=== PATIENT | female | born 1995 | race Caucasian/White ===

== ENCOUNTER 2018-03-30 19:16 | Emergency (ER) | payer SELFPAY ==
[2018-03-31] MEDS ORDERED: PROCHLORPERAZINE MALEATE 10 MG TABLET PO ONE (00:06)
[2018-03-31] MEDS ORDERED: IBUPROFEN 800 MG TABLET PO ONE (00:06)
[2018-03-31] MEDS ORDERED: DIPHENHYDRAMINE HCL 25 MG CAPSULE PO ONE (00:06)
--- NOTE | 2018-03-31 00:09 | ER Document Report ---
ED Medical Screen (RME) - General Chief Complaint: Headache Stated Complaint: WEAKNESS,NAUSEA Time Seen by Provider: 03/31/18 00:06 Mode of Arrival: Ambulatory Information source: Patient Notes: 23-year-old female presented to ED for complaint of migraine for 3-4 days with nausea no vomiting dizziness and intermittent chest pain. She states she has a history of migraines but this will not get relief. She states she is taken ibuprofen, Advil, naproxen, and Motrin as well as Tylenol with no relief. I have explained to her that ibuprofen Advil and Motrin are the same medication and naproxen is pretty similar do not take them within 8 hours of each other. Patient was able to verbalize understanding of this. She has been treated with Compazine and ibuprofen in the pit area. Patient is alert oriented respirations regular and unlabored speaking in full sentences walks with a even steady gait pupils equal and react to light. I have greeted and performed a rapid initial assessment of this patient. A comprehensive ED assessment and evaluation of the patient, analysis of test results and completion of medical decision making process will be conducted by an additional ED providers. TRAVEL OUTSIDE OF THE [place] IN LAST 30 DAYS: No - Related Data Allergies/Adverse Reactions: No Known Allergies Allergy (Verified 01/02/17 18:09) Past Medical History Pulmonary Medical History: Reports: Hx Asthma Renal/ Medical History: Denies: Hx Peritoneal Dialysis Past Surgical History: Reports: Hx Adenoidectomy, Hx Tonsillectomy - Immunizations Immunizations up to date: Yes History of Influenza Vaccine for 12/2016 - 05/2017 Season: Unknown Physical Exam - Vital signs Vitals: Temp Pulse Resp BP Pulse Ox 98.1 F 74 18 132/90 H 100 03/30/18 19:16 03/30/18 19:16 03/30/18 19:16 03/30/18 19:16 03/30/18 19:16 Course - Vital Signs Vital signs: Temp Pulse Resp BP Pulse Ox 98.1 F 74 18 132/90 H 100 03/30/18 19:16 03/30/18 19:27 03/30/18 19:27 03/30/18 19:27 03/30/18 19:27
--- NOTE | 2018-03-31 03:32 | ER Document Report ---
ED Headache - General Chief Complaint: Headache Stated Complaint: WEAKNESS,NAUSEA Time Seen by Provider: 03/31/18 03:32 Mode of Arrival: Ambulatory Information source: Patient Notes: HISTORY OF PRESENT ILLNESS: Patient is a 23-year-old female with a past medical history of chronic headaches/migraines who presents with recurrent worsening acute on chronic headache. Patient reports similar symptoms in the past, home treatments including oral ibuprofen did not improve the headache, she denies head injuries or confusion, no disorientation or ataxia, no fevers or chills. Onset: Gradual Provocation: Unknown Quality: Throbbing, global Radiation: None Severity: Moderate to severe Timing: Constant REVIEW OF SYSTEMS: CONSTITUTIONAL : Denies fever or chills, no sweats. Denies recent illness. EENT: Denies eye, ear, throat, or mouth pain or symptoms. Denies nasal or sinus congestion. CARDIOVASCULAR: Denies chest pain. RESPIRATORY: Denies cough, cold, or chest congestion. Denies shortness of breath, difficulty breathing, or wheezing. GASTROINTESTINAL: Denies abdominal pain. Denies nausea, vomiting, or diarrhea. Denies constipation. GENITOURINARY: Denies difficulty urinating, painful urination, burning, frequency, or blood in urine. FEMALE GENITOURINARY: Denies vaginal bleeding, abnormal or irregular periods. MUSCULOSKELETAL: Denies neck or back pain or joint pain or swelling. SKIN: Denies rash or skin lesions. HEMATOLOGIC : Denies easy bruising or bleeding. LYMPHATIC: Denies swollen, enlarged glands. NEUROLOGICAL: Denies altered mental status or loss of consciousness. Positive headache. Denies weakness or paralysis or loss of use of either side. Denies problems with gait or speech. Denies sensory or motor loss. PSYCHIATRIC: Denies anxiety or stress or depression. All other systems reviewed and negative. PHYSICAL EXAMINATION: GENERAL: Well-appearing, well-nourished and in no acute distress. HEAD: Atraumatic, normocephalic. No scalp deformity, depression, or crepitance. EYES: Pupils are 3 mm and equal/round/reactive to light, extraocular movements intact, sclera anicteric, conjunctiva are normal. ENT: Nares patent bilaterally, oropharynx clear without exudates or palatal petechia. Moist mucous membranes. No tonsil hypertrophy. NECK: Normal range of motion, supple without lymphadenopathy. LUNGS: Breath sounds present, equal, and clear to auscultation bilaterally. No wheezes, rales, or rhonchi. HEART: Regular rate and rhythm without murmurs, rubs, or gallops. 2+ peripheral pulses. Normal capillary refill. ABDOMEN: Soft, nontender, nondistended. Normoactive bowel sounds. No guarding, no rebound. No masses appreciated. BACK: Normal contour, no midline tenderness. Rectal exam deferred. PELVC: Deferred. EXTREMITIES: Normal range of motion, no pitting or edema. No cyanosis. NEUROLOGICAL: No focal neurological deficits. Moves all extremities spontaneously and on command. PSYCH: Normal mood, normal affect. No suicidal thoughts/ideations. No homocidal thoughts/ideations. No hallucinations. SKIN: Warm, dry, normal turgor, no rashes or lesions noted. ASSESSMENT AND PLAN: This patient is a 23-year-old female who presents with worsening acute on chronic headache. Most likely cluster headaches versus tension headache versus chronic migraine. 1. Will give oral Fioricet along with Imitrex and reassess. 2. Will plan for discharge if symptoms improve with treatment. TRAVEL OUTSIDE OF THE [place] IN LAST 30 DAYS: No - Related Data Allergies/Adverse Reactions: No Known Allergies Allergy (Verified 01/02/17 18:09) Past Medical History - General Information source: Patient - Social History Smoking Status: Unknown if Ever Smoked Chew tobacco use (# tins/day): No Frequency of alcohol use: None Drug Abuse: None Lives with: Family Family History: Reviewed & Not Pertinent Patient has suicidal ideation: No Patient has homicidal ideation: No - Past Medical History Cardiac Medical History: Reports: None Pulmonary Medical History: Reports: Hx Asthma EENT Medical History: Reports: None Neurological Medical History: Reports: None Endocrine Medical History: Reports: None Renal/ Medical History: Reports: None. Denies: Hx Peritoneal Dialysis Malignancy Medical History: Reports: None GI Medical History: Reports: None Musculoskeletal Medical History: Reports None Skin Medical History: Reports None Psychiatric Medical History: Reports: None Traumatic Medical History: Reports: None Infectious Medical History: Reports: None Past Surgical History: Reports: Hx Adenoidectomy, Hx Tonsillectomy - Immunizations Immunizations up to date: Yes Physical Exam - Vital signs Vitals: Temp Pulse Resp BP Pulse Ox 98.1 F 74 18 132/90 H 100 03/30/18 19:16 01/28/19 19:16 03/30/18 19:16 03/30/18 19:16 03/30/18 19:16 Course - Re-evaluation Re-evalutation: 03/31/18 06:09 Headache has resolved. Patient will be discharged home with return precautions and follow-up as needed. Patient voices both understanding and agreeing with the plan. - Vital Signs Vital signs: Temp Pulse Resp BP Pulse Ox 98.1 F 74 18 132/90 H 100 03/30/18 19:16 03/30/18 19:27 03/30/18 19:27 03/30/18 19:27 03/30/18 19:27 Discharge - Discharge Clinical Impression: Migraine headache Qualifiers: Migraine type: chronic without aura Status migrainosus presence: without status migrainosus Intractability: not intractable Qualified Code(s): G43.709 - Chronic migraine without aura, not intractable, without status migrainosus Condition: Good Disposition: HOME, SELF-CARE Instructions: Headache ([facility]) Additional Instructions: You have been evaluated in the Emergency Department for migraine headache. Please follow-up with your [primary physician] as instructed in 1-2 weeks. Return to the Emergency Department if you experience worsening headache that does not improve with medications, vision changes, confusion, difficulty walking, or any other concerning symptoms. Prescriptions: Butalb/Acetaminophen/Caffeine [Fioricet (50-325-40 mg) Tablet] 1 tab PO Q6H PRN #30 tab PRN Reason: For Headache Sumatriptan Succinate [Imitrex 25 mg Tablet] 25 mg PO ASDIR PRN #30 tablet PRN Reason: Print Language: Greenlandic
[2018-03-31] MEDS ORDERED: BUTALB/ACETAMINOPHEN/CAFFEINE 1 TAB EACH PO ONE (04:36)
[2018-03-31] MEDS ORDERED: SUMATRIPTAN SUCCINATE 25 MG TABLET PO ONE (04:37)
[2018-03-31] MEDS ORDERED: SUMATRIPTAN SUCCINATE 25 MG TABLET ONE (04:52)
[2018-03-31 06:20] VITALS: BP 115/70
== END 2018-03-31 06:20 | disposition home or self-care (01) ==
LOC: ER 19:16
DX: G43.709 Chronic migraine without aura, not intractable, without status migrainosus (principal); R53.1 Weakness; R11.0 Nausea
CPT/HCPCS: 99283; J3490 ×2; S0183

== ENCOUNTER 2019-01-27 14:00 | Emergency (ER) | payer SELFPAY ==
[2019-01-27] MEDS ORDERED: NORMAL SALINE 1000 ML 1,000 ML IV ONE (14:13)
[2019-01-27] MEDS ORDERED: BUTALB/ACETAMINOPHEN/CAFFEINE 1 TAB EACH PO ONE (14:14)
--- NOTE | 2019-01-27 14:16 | ER Document Report ---
ED Medical Screen (RME) - General Chief Complaint: Headache Stated Complaint: DIZZINESS Time Seen by Provider: 01/27/19 14:07 Primary Care Provider: SHANNON PITTMAN NP [Primary Care Provider] - Follow up as needed Mode of Arrival: Ambulatory Information source: Patient Notes: Patient presents complaining of daily headaches for the past 9 months. Patient reports headache pain is into the frontal area in the left side of her face. Patient states that she is also had a spinning sensation periodically for the past month. Patient states that she has had spots in her vision and ringing in her ears that has been going on for the past week that has brought her in today. Patient does have a history of headaches and is currently seeing a neurologist and is placed on amitriptyline. Patient denies any head injury fever nausea or vomiting. I have greeted and performed a rapid initial assessment of this patient. A comprehensive ED assessment and evaluation of the patient, analysis of test results and completion of the medical decision making process will be conducted by additional ED providers. TRAVEL OUTSIDE OF THE [place] IN LAST 30 DAYS: No - Related Data Allergies/Adverse Reactions: No Known Allergies Allergy (Verified 01/02/17 18:09) Past Medical History Pulmonary Medical History: Reports: Hx Asthma Renal/ Medical History: Denies: Hx Peritoneal Dialysis Past Surgical History: Reports: Hx Adenoidectomy, Hx Tonsillectomy - Immunizations Immunizations up to date: Yes Physical Exam - Vital signs Vitals: Temp Pulse Resp BP Pulse Ox 97.6 F 104 H 18 148/96 H 98 01/27/19 14:04 01/27/19 14:04 01/27/19 14:04 01/27/19 14:04 01/27/19 14:04 - Neurological Neuro grossly intact: Yes Cognition: Normal [place] Coma Scale Eye Opening: Spontaneous [place] Coma Scale Verbal: Oriented Patrice Coma Scale Motor: Obeys Commands [place] Coma Scale Total: 15 Speech: Normal. No: Dysarthria Course - Vital Signs Vital signs: Temp Pulse Resp BP Pulse Ox 97.6 F 104 H 18 148/96 H 98 01/27/19 14:04 01/27/19 14:04 01/27/19 14:04 01/27/19 14:04 01/27/19 14:04 Doctor's Discharge - Discharge Referrals: WITTLER,SHANNON, CHEMICAL RESEARCH TECHNICIAN [Primary Care Provider] - Follow up as needed
--- NOTE | 2019-01-27 14:58 | ER Document Report ---
ED General - General Chief Complaint: Headache Stated Complaint: DIZZINESS Time Seen by Provider: 01/27/19 14:07 Primary Care Provider: SHANNON PITTMAN NP [NO LOCAL MD] - Follow up as needed Mode of Arrival: Ambulatory TRAVEL OUTSIDE OF THE [place] IN LAST 30 DAYS: No - HPI Notes: Patient is a 23-year-old female with a history of chronic recurrent headaches, dizziness, and tinnitus who presents complaining of continued symptoms almost daily for the past 9 months. Patient has not had major changes in symptoms otherwise. She is able to eat and drink without difficulty. She is urinating normally and having normal bowel movements. Patient states that she normally does not take medicine for this issue, but will on occasion take Tylenol if it gets worse enough. Patient is otherwise somewhat vague with why she is here and with answering questions. She has a neurologist that she sees and has seen ophthalmology and ENT in the past as well. Patient states that her last imaging was a CT and MRI performed about 13 months ago. Patient states that she is also had a spinal tap done in the past, but no formal diagnosis of anything. This is not the worst headache of her life and did not start as a thunderclap. Denies drug allergies. No recent illness. Denies any fever, head injury, neck pain, changes in vision/speech/mentation/hearing, URI, sore throat, chest pain, palpitations, syncope, cough, shortness of breath, wheeze, dyspnea, abdominal pain, nausea/vomiting/diarrhea, urinary retention, dysuria, hematuria, loss of control of bowel or bladder, numbness/tingling, saddle anesthesia, muscle paralysis/weakness, or rash. - Related Data Allergies/Adverse Reactions: No Known Allergies Allergy (Verified 01/02/17 18:09) Past Medical History - General Information source: Patient - Social History Smoking Status: Never Smoker Chew tobacco use (# tins/day): No Frequency of alcohol use: None Drug Abuse: None Family History: Reviewed & Not Pertinent Patient has suicidal ideation: No Patient has homicidal ideation: No Pulmonary Medical History: Reports: Hx Asthma Renal/ Medical History: Denies: Hx Peritoneal Dialysis Past Surgical History: Reports: Hx Adenoidectomy, Hx Tonsillectomy - Immunizations Immunizations up to date: Yes Review of Systems - Review of Systems -: Yes All other systems reviewed and negative Physical Exam - Vital signs Vitals: Temp Pulse Resp BP Pulse Ox 97.6 F 104 H 18 148/96 H 98 01/27/19 14:04 01/27/19 14:04 01/27/19 14:04 01/27/19 14:04 01/27/19 14:04 - Notes Notes: PHYSICAL EXAMINATION: GENERAL: Well-appearing, well-nourished and in no acute distress. A&Ox4. Answers questions appropriately. HEAD: Atraumatic, normocephalic. Non-tender. EYES: Pupils equal round and reactive to light, extraocular movements intact, sclera anicteric, conjunctiva are normal. No nystagmus. ENT: EAC clear b/l. TM's intact b/l without erythema, fluid, or perforation. Nares patent and without discharge. oropharynx clear without exudates. No tonsilar hypertrophy or erythema. Moist mucous membranes. No sinus tenderness. NECK: Normal range of motion, supple without lymphadenopathy. No rigidity/meningismus. No midline tenderness. LUNGS: Breath sounds clear to auscultation bilaterally and equal. No wheezes rales or rhonchi. HEART: Regular rate and rhythm without murmurs, rubs, gallops. ABDOMEN: Soft, nontender, nondistended abdomen. No guarding, no rebound. Normal bowel sounds present. No CVA tenderness bilaterally. Musculoskeletal: Ext b/l: FROM to passive/active. Strength 5+/5. No deficits noted. No bony tenderness of extremities. Extremities: No cyanosis, clubbing, or edema b/l. Peripheral pulses 2+. Capillary refill less than 2 seconds. NEUROLOGICAL: NIH 0. GCS 15. Cranial nerves grossly intact. Normal speech, normal gait. Normal sensory, motor exams. Reflexes 2+ b/l. ASH's negative. Pronator drift negative. Heel/franklin, finger/nose wnl. Romberg neg. PSYCH: Normal mood, normal affect. SKIN: Warm, Dry, normal turgor, no rashes or lesions noted. Course - Re-evaluation Re-evalutation: 01/27/19 14:53 I have reviewed with case with Dr. Momin who would like to obtain a CT head to further evaluate and if unremarkable may discharge. Reviewed risk/benefit of CT imaging with patient who agrees to CT scan. 01/27/19 15:50 Patient is an afebrile, well-hydrated, 23-year-old female who presents to the ED with KING, unspecified, suspect benign. Vitals are acceptable without any significant tachycardia, tachypnea, or hypoxia. PE is otherwise unremarkable for any focal neurological deficits. NIH 0, GCS 15, cranial nerves grossly intact. Patient has had headaches like this in the past recently. CT head unremarkable aside from left sinus disease. No fever or URI symptoms otherwise. We will hold on any antibiotics per Dr. Momin. No further labs or imaging warranted at this time based on H&P. Pt declined any medications today. She is nontoxic-appearing and is tolerating p.o. without any difficulties. Low suspicion for any acute glaucoma, temporal arteritis, meningitis, intracranial hemorrhage, ischemic stroke, or fracture at this time. Patient is aware that this condition can change from initial presentation and that she needs to monitor symptoms closely for any acute changes. Recheck with your PCM/neurologist in 3-5 days. F/u with ENT/Neuro. Return to the ED with any worsening/concerning symptoms otherwise as reviewed in discharge. Patient is in agreement. - Vital Signs Vital signs: Temp Pulse Resp BP Pulse Ox 97.6 F 104 H 18 148/96 H 98 01/27/19 14:04 01/27/19 14:04 01/27/19 14:04 01/27/19 14:04 01/27/19 14:04 Discharge - Discharge Clinical Impression: Headache Qualifiers: Headache type: unspecified Headache chronicity pattern: acute headache Intractability: not intractable Qualified Code(s): R51 - Headache Condition: Stable Disposition: HOME, SELF-CARE Instructions: Headache ([facility]) Additional Instructions: Rest, Ice/cool compress Tylenol/ibuprofen as needed Light stretches daily over the counter medicines as needed Strength exercises as able Moist heat and massage may help F/u with your PCP in 3-5 days for a recheck Schedule consult with neurology and ENT Return to the ED with any worsening symptoms and/or development of fever, headache, changes in behavior/mentation/vision/speech, chest pain, palpitations, syncope, shortness of breath, trouble breathing, abdominal pain, n/v/d, blood in stool/urine, loss of control of bowel/bladder, urinary retention, muscle weakness/paralysis, saddle anesthesia, numbness/tingling, or other worsening symptoms that are concerning to you. Forms: Elevated Blood Pressure Referrals: SHANNON PITTMAN NP [NO LOCAL MD] - Follow up as needed DOMINGO CERRATO DO [ASSOCIATE] - Follow up as needed
--- NOTE | 2019-01-27 15:28 | RADIOLOGY REPORT (SQ) ---
EXAM DESCRIPTION: CT HEAD WITHOUT COMPLETED DATE/TIME: 01/27/2019 3:18 pm REASON FOR STUDY: headache, dizziness COMPARISON: None. TECHNIQUE: Axial images acquired through the brain without intravenous contrast. Images reviewed wi th bone, brain and subdural windows. Additional sagittal and coronal reconstructions were generated. Images stored on PACS. All CT scanners at this facility use dose modulation, iterative reconstruction, and/or weight based d osing when appropriate to reduce radiation dose to as low as reasonably achievable (ALARA). [facility]: Dose Right [facility]: CareDose [facility]: Dose Right [facility]: Teradose 4D [facility]: Smart [employer] RADIATION DOSE: CT Rad equipment meets quality standard of care and radiation dose reduction techniq ues were employed. CTDIvol: 53.2 mGy. DLP: 1150 mGy-cm. mGy. LIMITATIONS: None. FINDINGS: VENTRICLES: Normal size and contour. CEREBRUM: No masses. No hemorrhage. No midline shift. No evidence for acute infarction. Normal gra y/white matter differentiation. No areas of low density in the white matter. CEREBELLUM: No masses. No hemorrhage. No alteration of density. No evidence for acute infarction. EXTRAAXIAL SPACES: No fluid collections. No masses. ORBITS AND GLOBE: No intra- or extraconal masses. Normal contour of globe without masses. CALVARIUM: No fracture. PARANASAL SINUSES: Large mucous retention cyst in the left maxillary sinus. SOFT TISSUES: No mass or hematoma. OTHER: No other significant finding. IMPRESSION: Left maxillary sinus disease with no acute intracranial imaging finding. EVIDENCE OF ACUTE STROKE: NO. COMMENT: Quality ID # [id number]: Final reports with documentation of one or more dose reduction techniques (e.g., Automated exposure control, adjustment of the mA and/or kV according to patient size, use of iterative reconstruction technique) TECHNICAL DOCUMENTATION: JOB ID: [id number] [employer] All Rights Reserved Reading location - IP/workstation name: [email or web address]
[2019-01-27 16:34] VITALS: BP 114/79
== END 2019-01-27 16:34 | disposition home or self-care (01) ==
LOC: ER 14:00
DX: R51 Headache (principal); J32.0 Chronic maxillary sinusitis; R42 Dizziness and giddiness; J45.909 Unspecified asthma, uncomplicated
CPT/HCPCS: 70450; 99284

== ENCOUNTER 2019-03-04 16:51 | Emergency (ER) | payer OTHER ==
--- NOTE | 2019-03-04 17:25 | ER Document Report ---
ED Medical Screen (RME) - General Chief Complaint: Cough Stated Complaint: COUGH,CONGESTION Time Seen by Provider: 03/04/19 17:20 Primary Care Provider: INDERJIT FLYNN FNP [Primary Care Provider] - Follow up as needed TRAVEL OUTSIDE OF THE [place] IN LAST 30 DAYS: No - HPI Notes: 03/04/19 17:23 Patient is a 23-year-old female with a history of chronic recurrent headaches, dizziness, and tinnitus who presents complaining of having nasal congestion and discharge as well as a semi-productive cough that began yesterday. Patient states that she is having some midsternal chest pain as well that does not radiate. She did have one episode of hemoptysis, but also states that she did have some scant blood from her nose around the same time. No fever, abdominal pain, nausea/vomiting. No history of DVT/PE. Pt is somewhat tachycardic and c/o CP; although she is coughing with report of ?true hemoptysis. we will perform just a basic work up at this time. I have treated and performed a rapid initial assessment of this patient. A comprehensive ED assessment and evaluation of the patient, analysis of test results and completion of medical decision making process will be conducted by additional ED providers. PHYSICAL EXAMINATION: GENERAL: Well-appearing, well-nourished and in no acute distress. A&Ox4. Answers questions appropriately. Lungs: CTAB. No retractions. Heart: RRR Extremities: No edema. rhonda neg b/l. - Related Data Allergies/Adverse Reactions: No Known Allergies Allergy (Verified 01/02/17 18:09) Past Medical History - Social History Frequency of alcohol use: None Drug Abuse: None Pulmonary Medical History: Reports: Hx Asthma Renal/ Medical History: Denies: Hx Peritoneal Dialysis Past Surgical History: Reports: Hx Adenoidectomy, Hx Tonsillectomy - Immunizations Immunizations up to date: Yes Physical Exam - Vital signs Vitals: Temp Pulse Resp BP Pulse Ox 98.4 F 111 H 16 127/87 H 97 03/04/19 16:54 03/04/19 16:54 03/04/19 16:54 03/04/19 16:54 03/04/19 16:54 Course - Vital Signs Vital signs: Temp Pulse Resp BP Pulse Ox 98.4 F 111 H 16 127/87 H 97 03/04/19 16:54 03/04/19 16:54 03/04/19 16:54 03/04/19 16:54 03/04/19 16:54 Doctor's Discharge - Discharge Referrals: INDERJIT FLYNN FNP [Primary Care Provider] - Follow up as needed
--- NOTE | 2019-03-04 17:47 | RADIOLOGY REPORT (SQ) ---
EXAM DESCRIPTION: CHEST 2 VIEWS COMPLETED DATE/TIME: 03/04/2019 5:33 pm REASON FOR STUDY: cough/CP COMPARISON: None. EXAM PARAMETERS: NUMBER OF VIEWS: two views TECHNIQUE: Digital Frontal and Lateral radiographic views of the chest acquired. RADIATION DOSE: NA LIMITATIONS: none FINDINGS: LUNGS AND PLEURA: No opacities, masses or pneumothorax. No pleural effusion. MEDIASTINUM AND HILAR STRUCTURES: No masses or contour abnormalities. HEART AND VASCULAR STRUCTURES: Heart normal size. No evidence for failure. BONES: No acute findings. HARDWARE: None in the chest. OTHER: No other significant finding. IMPRESSION: NO ACUTE RADIOGRAPHIC FINDING IN THE CHEST. TECHNICAL DOCUMENTATION: JOB ID: [id number] [place]-[id number] 2010 [employer]- All Rights Reserved Reading location - IP/workstation name: [email or web address]
[2019-03-04 18:16] LABS: ABSOLUTE LYMPHOCYTES (AUTO) 1.5 10^3/uL (0.5-4.7); ABSOLUTE MONOCYTES (AUTO) 0.5 10^3/uL (0.1-1.4); ABSOLUTE NEUT (AUTO) 2.6 10^3/uL (1.7-8.2); BASOPHILS % (AUTO) 0.3 % (0-2); EOSINOPHILS % (AUTO) 0.7 % (0-6); HEMATOCRIT 40.1 % (36.0-47.0); HEMOGLOBIN 14.1 g/dL (12.0-15.5); LYMPHOCYTES % (AUTO) 32.2 % (13-45); MEAN CORPUSCULAR HEMOGLOBIN 30.9 pg (27.0-33.4); MEAN CORPUSCULAR VOLUME 88 fl (80-97); MONOCYTES % (AUTO) 11.4 % (3-13); PLATELET COUNT 203 10^3/uL (150-450); RED BLOOD COUNT 4.55 10^6/uL (3.72-5.28); SEGMENTED NEUTROPHILS % (AUTO) 55.4 % (42-78); TOTAL CELLS COUNTED % (AUTO) 100 %; WHITE BLOOD COUNT 4.7 10^3/uL (4.0-10.5)
[2019-03-04 18:39] LABS: ALBUMIN 4.6 g/dL (3.5-5.0); ALKALINE PHOSPHATASE 57 U/L (38-126); ANION GAP 10 (5-19); ASPARTATE AMINO TRANSFERASE 23 U/L (14-36); BILIRUBIN,DIRECT 0.2 mg/dL (0.0-0.4); BILIRUBIN,TOTAL 0.5 mg/dL (0.2-1.3); BLOOD UREA NITROGEN 4 mg/dL (7-20); CALCIUM 10.4 mg/dL (8.4-10.2); CARBON DIOXIDE 30 mmol/L (22-30); CHLORIDE 98 mmol/L (98-107); GLUCOSE 97 mg/dL (75-110); POTASSIUM 4.1 mmol/L (3.6-5.0); TOTAL PROTEIN 7.7 g/dL (6.3-8.2)
[2019-03-04] MEDS ORDERED: LIDOCAINE 2% VISCOUS SOLN 20 ML UDCUP PO ONE (19:13)
[2019-03-04] MEDS ORDERED: PSEUDOEPHEDRINE HCL 30 MG TABLET PO ONE (19:13)
[2019-03-04] MEDS ORDERED: MAG HYDROX/AL HYDROX/SIMETH SUSP 30 ML UDCUP PO ONE (19:13)
[2019-03-04] MEDS ORDERED: GUAIFENESIN 600 MG TABLET.SA PO ONE (19:13)
--- NOTE | 2019-03-04 19:17 | ER Document Report ---
ED General - General Chief Complaint: Chest Pain Stated Complaint: COUGH,CONGESTION Time Seen by Provider: 03/04/19 17:20 Primary Care Provider: INDERJIT FLYNN FNP [Primary Care Provider] - Follow up as needed Mode of Arrival: Ambulatory Information source: Patient Notes: Patient presents with cough congestion that started yesterday. Patient states that she did have a nosebleed and afterwards noticed some blood in her sputum after coughing. Patient denies any fever nausea or vomiting. Patient does complain of some headache pain to the right brow area that occurs whenever she bends over at the waist. Patient states when she sits up the pain resolves. Patient does have a known history of sinus disease with a mucous retention cyst. Patient states that they are getting her set up to have sinus surgery. She also complains of some chest pain and reports that she has had some problems with heartburn symptoms. Patient denies any difficulty breathing. Patient denies any previous history of PE or DVT. TRAVEL OUTSIDE OF THE [place] IN LAST 30 DAYS: No - HPI Onset: Yesterday Onset/Duration: Gradual Quality of pain: Achy Pain Level: 4 Associated symptoms: Sinus pain/drainage. denies: Fever, Nausea, Vomiting Exacerbated by: Denies Relieved by: Denies Similar symptoms previously: Yes Recently seen / treated by doctor: No - Related Data Allergies/Adverse Reactions: No Known Allergies Allergy (Verified 01/02/17 18:09) Past Medical History - General Information source: Patient - Social History Smoking Status: Never Smoker Frequency of alcohol use: None Drug Abuse: None Occupation: None Family History: Reviewed & Not Pertinent Patient has suicidal ideation: No Patient has homicidal ideation: No Pulmonary Medical History: Reports: Hx Asthma Renal/ Medical History: Denies: Hx Peritoneal Dialysis Past Surgical History: Reports: Hx Adenoidectomy, Hx Tonsillectomy - Immunizations Immunizations up to date: Yes Review of Systems - Review of Systems Constitutional: No symptoms reported. denies: Fever EENT: Nose congestion, Sinus pressure, Sinus discharge Cardiovascular: Chest pain Physical Exam - Vital signs Vitals: Temp Pulse Resp BP Pulse Ox 98.4 F 111 H 16 127/87 H 97 03/04/19 16:54 03/04/19 16:54 03/04/19 16:54 03/04/19 16:54 03/04/19 16:54 - General General appearance: Appears well, Alert In distress: None - HEENT Head: Normocephalic Eyes: Normal Pupils: PERRL Ears: Normal External canal: Normal Tympanic membrane: Normal Sinus: Frontal - Right frontal mass Nasal: Swelling, Clear rhinorrhea. No: Epistaxis Mouth/Lips: Normal Pharynx: Normal Neck: Normal, Supple. No: Lymphadenopathy, Meningismus - Respiratory Respiratory status: No respiratory distress Chest status: Nontender Breath sounds: Nonproductive cough Chest palpation: Normal - Cardiovascular Rhythm: Regular Heart sounds: S1 appreciated, S2 appreciated Murmur: No - Abdominal Inspection: Normal Distension: No distension Tenderness: Nontender - Back Back: Normal, Nontender. No: CVA tenderness - Extremities General upper extremity: Normal inspection, Normal strength General lower extremity: Normal inspection, Normal strength - Neurological Neuro grossly intact: Yes Cognition: Normal Patrice Coma Scale Eye Opening: Spontaneous [place] Coma Scale Verbal: Oriented [place] Coma Scale Motor: Obeys Commands [place] Coma Scale Total: 15 - Psychological Associated symptoms: Normal affect, Normal mood - Skin Skin Temperature: Warm Skin Moisture: Dry Skin Color: Normal Course - Re-evaluation Re-evalutation: 03/04/19 20:08 Patient with sinus congestion symptoms and headache pain worrisome for sinus pressure. Patient encouraged to follow-up with her ENT doctor for recheck. No concerns for acute sinusitis at this time. Patient with upper respiratory symptoms, no concern for pneumonia or pneumothorax. Patient does report some chest discomfort although symptoms improved after GI cocktail. Patient states she has had problems with acid reflux after starting nortriptyline. The patient has atypical chest pain as the patient's chest pain is not suggestive of pu lmonary embolus, cardiac ischemia, aortic dissection, or other serious etiology. Given the extremely low risk of these diagnoses, evaluation for these possibilities does not appear to be indicated at this time. Patient has been instructed to return if the symptoms worsen or change in any way. - Vital Signs Vital signs: Temp Pulse Resp BP Pulse Ox 98.6 F 98 16 120/78 100 03/04/19 20:29 03/04/19 20:29 03/04/19 20:29 03/04/19 20:29 03/04/19 20:29 - Laboratory Result Diagrams: 03/04/19 18:00 03/04/19 18:00 Laboratory results interpreted by me: 03/04/19 18:00 BUN 4 L Creatinine 0.44 L Calcium 10.4 H 03/04/19 20:07 Labs- Entire Visit 03/04/19 03/04/19 03/04/19 18:00 18:00 18:00 WBC 4.7 RBC 4.55 Hgb 14.1 Hct 40.1 MCV 88 MCH 30.9 MCHC 35.0 RDW 12.0 Plt Count 203 Lymph % (Auto) 32.2 Upson % (Auto) 11.4 Eos % (Auto) 0.7 Baso % (Auto) 0.3 Absolute Neuts (auto) 2.6 Absolute Lymphs (auto) 1.5 Absolute Monos (auto) 0.5 Absolute Eos (auto) 0.0 Absolute Basos (auto) 0.0 Seg Neutrophils % 55.4 D-Dimer < 0.27 Sodium 138.3 Potassium 4.1 Chloride 98 Carbon Dioxide 30 Anion Gap 10 BUN 4 L Creatinine 0.44 L Est GFR ( Amer) > 60 Est GFR (MDRD) Non-Af > 60 Glucose 97 Calcium 10.4 H Total Bilirubin 0.5 Direct Bilirubin 0.2 Neonat Total Bilirubin Not Reportable Neonat Direct Bilirubin Not Reportable Neonat Indirect Bili Not Reportable AST 23 ALT 13 Alkaline Phosphatase 57 Total Protein 7.7 Albumin 4.6 - Diagnostic Test Radiology reviewed: Reports reviewed - EKG Interpretation by Me EKG shows normal: Sinus rhythm Rate: Tachycardia Additional EKG results interpreted by me: 03/04/19 20:[address] elevation, QTc 423 Discharge - Discharge Clinical Impression: Sinus headache Upper respiratory infection Qualifiers: URI type: unspecified URI Qualified Code(s): J06.9 - Acute upper respiratory infection, unspecified Condition: Stable Disposition: HOME, SELF-CARE Instructions: Chest Pain of Unclear Cause ([facility]), Reflux Disease (GERD) ([facility]), Upper Respiratory Illness ([facility]) Additional Instructions: Return immediately for any new or worsening symptoms Followup with your primary care provider, call tomorrow to make a followup appointment Prescriptions: Sucralfate [Carafate 1 gm Tablet] 1 gm PO ACHS #20 tablet Guaifenesin/Pseudoephedrne HCl [Mucinex D ER 1,200-120 mg Tab] 1 each PO Q12 PRN #12 tab.er.12h PRN Reason: Referrals: INDERJIT FLYNN, [employer] [Primary Care Provider] - Follow up as needed
--- NOTE | 2019-03-04 19:28 | EKG REPORT ---
SEVERITY:- OTHERWISE NORMAL ECG - SINUS TACHYCARDIA : Confirmed by: Josue Sheikh MD 04-Mar-2019 19:28:02
[2019-03-04 20:32] VITALS: BP 120/78
== END 2019-03-04 20:32 | disposition home or self-care (01) ==
LOC: ER 16:51
DX: J06.9 Acute upper respiratory infection, unspecified (principal); J34.89 Other specified disorders of nose and nasal sinuses; R51 Headache; R04.0 Epistaxis; R04.2 Hemoptysis; R07.89 Other chest pain; J45.909 Unspecified asthma, uncomplicated; R09.81 Nasal congestion; R00.0 Tachycardia, unspecified
CPT/HCPCS: 93005; 99284; 36415; 85025; 80053; 85379; 71046; 93010; J3490